=== PATIENT | female | born 1960 ===

== ENCOUNTER → 2020-12-18 15:00 | Outpatient (CLI) | payer OTHER | END | disposition home or self-care (01) | LOC: PPH VACUNA 15:00 | DX: Z23 Encounter for immunization (principal) ==

== ENCOUNTER 2021-01-07 14:27 | Outpatient (CLI) | payer OTHER | END 2021-01-07 14:28 | disposition home or self-care (01) | LOC: PPH VACUNA 14:27 | DX: Z23 Encounter for immunization (principal) ==

== ENCOUNTER 2021-07-15 10:15 | Outpatient (CLI) | payer OTHER | END 2021-07-15 10:30 | disposition home or self-care (01) | LOC: PPH VACUNA 10:15 | PROVIDERS: ATTEND Emergency Medicine Pediatric Emergency Medicine | DX: Z23 Encounter for immunization (principal) ==